=== PATIENT | male | born 1950 | race Two or more races ===

== ENCOUNTER 2016-03-11 12:12 | Emergency (ER) | payer OTHER ==
[2016-03-11] MEDS ORDERED: ASPirin 81 mg TAB PO ONE (12:45)
[2016-03-11] MEDS ORDERED: PANTOPRAZOLE SODIUM 40 MG/10 ML VIAL IV ONE (12:45)
[2016-03-11] MEDS ORDERED: MORPHINE SULF INJ 2 MG/ML SYRINGE 1ML IV ONE (12:45)
[2016-03-11] MEDS ORDERED: ONDANSETRON HCL 4 MG/2 ML VIAL IV ONE (12:45)
[2016-03-11 13:00] VITALS: BP 143/95
[2016-03-11 13:02] LABS: Mean Platelet Volume 7.9 fL (7.4-10.4); White Blood Cell 6.9 10^3/uL (4.4-10.8)
[2016-03-11 13:10] LABS: Basophils # (auto) 0 uL; Basophils % (auto) 0.2 % (0.0-2.0); Eosinophils # (auto) 0 uL; Hematocrit 52.9 % (41.0-53.0); Hemoglobin 17.3 g/dL (13.5-17.5); Lymphocytes # (auto) 0.5 uL; Lymphocytes % (auto) 7.5 % (10.0-50.0); Mean Corpuscular Hemoglobin 29.9 pg (28.0-32.0); Mean Corpuscular Hgb Conc. 32.8 g/dL (32.0-36.0); Mean Corpuscular Volume 91.4 fL (80.0-100.0); Monocytes # (auto) 0.7 uL; Monocytes % (auto) 9.8 % (0.0-12.0); Neutrophils # (auto) 5.7 uL; Neutrophils % (auto) 82.5 % (37.0-80.0); Platelet Count (auto) 174 10^3/uL (140-450); Red Cell Distribution Width 13.4 % (11.6-16.0)
[2016-03-11 13:34] LABS: Albumin 3.3 g/dL (3.4-5.0); BUN/Creatinine Ratio 15.2; Bilirubin, Total 0.9 mg/dL (0.2-1.0); Calcium 8.9 mg/dL (8.5-10.1); Magnesium 2.4 mg/dL (1.6-2.6); Potassium 4.2 mmol/L (3.5-5.1); Total Protein 8.1 g/dL (6.4-8.2)
[2016-03-11 13:36] LABS: B-Type Natriuretic Peptide 21.89 pg/mL (0-100)
[2016-03-11 14:02] LABS: Temperature: 22.5 C (20.0-25.0)
== END 2016-03-11 14:25 | disposition home or self-care (01) ==
LOC: ER 12:12
DX: R07.89 Other chest pain (principal); R50.9 Fever, unspecified; R61 Generalized hyperhidrosis
CPT/HCPCS: 36415; 71010; 80053; 83735; 83880; 84484; 85025; 93005; 94761; 96374; 96375; 99285; C9113; J2270; J2405